=== PATIENT | female | born 1995 | race Two or more races ===

== ENCOUNTER 2016-06-28 20:57 | Emergency (ER) | payer MEDICAID ==
[~2016-06-28] VITALS: Ht 152.4 cm; Wt 63.5 kg
[2016-06-28 21:34] LABS: Urine Bilirubin Negative (Negative); Urine Glucose Normal (Normal); Urine Nitrite Negative (Negative); Urine RBC 1 /hpf (0 - 4); Urine Squamous Epithelial Cell FEW /hpf (<5); Urine Urobilinogen Normal (Negative)
[2016-06-28 21:37] LABS: Urine Blood 1+ /uL (Negative); Urine Color Straw (Yellow); Urine Ketone 1+ (Negative)
[2016-06-28 22:51] LABS: Basophils # (auto) 0 uL; Basophils % (auto) 0.2 % (0.0-2.0); DEFINITIVE VIEW TRANSMISSION; Eosinophils # (auto) 0.1 uL; Eosinophils % (auto) 1.1 % (0.0-7.0); Hematocrit 32.7 % (36.0-46.0); Hemoglobin 10.4 g/dL (12.2-16.2); Lymphocytes # (auto) 1.5 uL; Lymphocytes % (auto) 13.4 % (10.0-50.0); Mean Corpuscular Hemoglobin 22.3 pg (28.0-32.0); Mean Corpuscular Hgb Conc. 31.7 g/dL (32.0-36.0); Mean Corpuscular Volume 70.4 fL (80.0-100.0); Mean Platelet Volume 8.3 fL (7.4-10.4); Monocytes # (auto) 0.8 uL; Monocytes % (auto) 6.9 % (0.0-12.0); Neutrophils # (auto) 8.7 uL; Neutrophils % (auto) 78.4 % (37.0-80.0); Platelet Count (auto) 261 10^3/uL (140-450); Red Cell Distribution Width 18.7 % (11.6-16.0); White Blood Cell 11.1 10^3/uL (4.4-10.8)
[2016-06-28 23:01] LABS: Albumin 3.7 g/dL (3.4-5.0); Bilirubin, Total 0.4 mg/dL (0.2-1.0); Calcium 8.9 mg/dL (8.5-10.1); Magnesium 2.5 mg/dL (1.6-2.6); Potassium 3.6 mmol/L (3.5-5.1); Total Protein 7.6 g/dL (6.4-8.2)
[2016-06-29] MEDS ORDERED: MORPHINE SULF INJ 2 MG/ML SYRINGE 1ML IM ONE
[2016-06-29] MEDS ORDERED: ONDANSETRON ODT 4 MG TAB PO ONE
[2016-06-29 02:27] VITALS: BP 104/73
== END 2016-06-29 02:09 | disposition home or self-care (01) ==
LOC: ER 21:03
DX: K58.9 Irritable bowel syndrome, unspecified (principal); R10.31 Right lower quadrant pain
CPT/HCPCS: 36415; 74176; 80053; 81001; 81025; 83690; 83735; 84702; 85025; 96372; 99285; J2270; Q0162

== ENCOUNTER 2021-08-14 21:01 | Emergency (ER) | payer MEDICAID ==
[~2021-08-14] VITALS: Ht 152.4 cm; Wt 74.8 kg
[2021-08-14 22:53] LABS: Urine Bacteria FEW /hpf (None Seen); Urine Blood 2+ /uL (Negative); Urine Specific Gravity 1.016 (1.001-1.035); Urine WBC 1 /hpf (0 - 5)
[2021-08-15 03:57] VITALS: BP 109/60
[2021-08-15] MEDS ORDERED: IBUP800T26 PO (03:57)
== END 2021-08-15 04:02 | disposition home or self-care (01) ==
LOC: ER 21:01
DX: R07.81 Pleurodynia (principal); Z32.02 Encounter for pregnancy test, result negative; W18.09XA Striking against other object with subsequent fall, initial encounter; Y93.89 Activity, other specified; Y92.89 Other specified places as the place of occurrence of the external cause; Y99.8 Other external cause status
CPT/HCPCS: 71250; 74176; 81001; 81025